=== PATIENT | male | born 1945 | race American Indian/Alaskan Native ===

== ENCOUNTER 2017-09-19 10:39 | Observation (INO) | payer MEDICARE ==
[2017-09-17 14:49] LABS: Eosinophils # (Auto) 0.1 K/mm3 (0.0-0.4); Eosinophils % (Auto) 3.1 % (0.0-4.3); Hematocrit 43.2 % (35.5-45.6); Hemoglobin 14.3 gm/dl (11.8-15.2); Lymphocytes # (Auto) 1.5 K/mm3 (1.2-5.4); Lymphocytes % (Auto) 32.5 % (13.4-35.0); Mean Corpuscular HGB Conc 33 % (32-34); Mean Corpuscular Hemoglobin 29 pg (28-32); Mean Corpuscular Volume 89 fl (84-94); Monocytes # (Auto) 0.3 K/mm3 (0.0-0.8); Monocytes % (Auto) 7.1 % (0.0-7.3); Platelet Count 160 K/mm3 (140-440); Red Blood Count 4.87 M/mm3 (3.65-5.03); Red Cell Distribution Width 13.2 % (13.2-15.2)
[2017-09-17 15:01] LABS: INR 0.92 (0.87-1.13)
[2017-09-17 15:02] LABS: Partial Thromboplastin Time 30.1 Sec. (24.2-36.6)
[2017-09-17 15:04] LABS: Alanine Aminotransferase 15 units/L (7-56); Albumin 4.2 g/dL (3.9-5); BUN/Creatinine Ratio 15; Blood Urea Nitrogen 17 mg/dL (9-20); Hemolysis Index 46
[~2017-09-19 10:39] MED LIST: DILAUDID IV PRN; GARAMYCIN/NS 80 MG/100 ML 100 ML IV SCH; VANCOMYCIN PHARMACY TO DOSE IV SCH; VANCOMYCIN/NS 1 GM/250 ML 1 GM/250 ML BAG IV SCH; ZOFRAN IV PRN
[2017-09-19] MEDS ORDERED: LACTATED RINGERS 1,000 ML IV SCH (11:00)
[2017-09-19] MEDS ORDERED: VERSED IV NR (11:00)
[2017-09-19] MEDS ORDERED: NACL BACTERIOSTATIC INFILTRATI ONE (11:55)
[2017-09-19] MEDS ORDERED: NEO SYNEPHRINE/NS Syringe(OR USE) IV ONE (12:00)
[2017-09-19] MEDS: LACTATED RINGERS 1,000 ML IV SCH (12:10)
[2017-09-19] MEDS ORDERED: NACL ONE ×2 (12:49→12:50)
[2017-09-19] MEDS ORDERED: MARCAINE 0.5% 30 ML INFILTRATI ONE (12:49)
[2017-09-19] MEDS ORDERED: XYLOCAINE MPF 2% ONE (12:55)
[2017-09-19] MEDS ORDERED: DILAUDID ONE (12:55)
[2017-09-19] MEDS ORDERED: DIPRIVAN 10 MG/ML IV ONE (12:55)
[2017-09-19] MEDS ORDERED: VANCOMYCIN/0.45 NS 1 GM/250 ML 1 GM/250 ML BAG IV SCH (13:00)
[2017-09-19] MEDS ORDERED: NEOSPORIN GU IR ONE (14:04)
[2017-09-19] MEDS ORDERED: MARCAINE 0.5% INFILTRATI ONE (14:05)
[2017-09-19] MEDS ORDERED: NACL 0.9% IR ONE (14:05)
[2017-09-19] MEDS ORDERED: NACL INFILTRATI ONE (14:06)
[2017-09-19] MEDS ORDERED: NARCAN 0.4 MG/1 ML IV PRN (14:28)
[2017-09-19] MEDS ORDERED: NORCO 5/325 PO PRN (14:28)
--- NOTE | 2017-09-19 14:28 | Short Stay Summary ---
Short Stay Documentation Date of service: 09/12/17 - History H&P: obtained from office - Allergies and Medications Current Medications: Allergies Penicillins Allergy (Verified 09/13/17 12:45) Hives Home Medications Medication Instructions Recorded Confirmed Last Taken Type Finasteride [Proscar] 5 mg PO DAILY 09/13/17 09/13/17 09/18/17 History Folic Acid 0.4 mg PO QDAY 09/13/17 09/19/17 09/18/17 History Lisinopril/Hydrochlorothiazide 1 each PO DAILY 09/13/17 09/19/17 09/19/17 06:00 History [Zestoretic 10-12.5 mg Tablet] Terazosin HCl 2 mg PO DAILY 09/13/17 09/13/17 09/18/17 History Active Medications Gentamicin Sulfate/Sodium Chloride (Garamycin/Ns 80 Mg/100 Ml) 100 mls @ 200 mls/hr IV PREOP GLENDY Stop: 09/19/17 23:59 Lactated Ringer's (Lactated Ringers) 1,000 mls @ 100 mls/hr IV DIRECT GLENDY Last Admin: 09/19/17 12:10 Dose: 100 mls/hr Vancomycin HCl (Vancomycin/0.45 Ns 1 Gm/250 Ml) 1 gm in 250 mls @ 167.007 mls/ hr IV PREOP GLEDNY Midazolam HCl (Versed) 2 mg IV PREOP NR Stop: 09/19/17 23:59 Last Admin: 09/19/17 12:13 Dose: 2 mg - Brief post op/procedure progress note Date of procedure: 09/19/17 Pre-op diagnosis: ED Post-op diagnosis: same Procedure: ipp 21 + 3cm RTE Anesthesia: GIOVANNI Surgeon: SU VAN Child And Family Therapist: ALIS NGUYEN Estimated blood loss: minimal Pathology: none Condition: stable - Hospital course Hospital course: post op info on chart (pt has abx/pain meds) do not discuss with family/friends removed paredes& wrap looks good - Disposition Condition at discharge: Stable Short Stay Discharge Plan Follow up with: AKIRA SPICER MD, PHD [Primary Care Provider] - 7 Days
--- NOTE | 2017-09-19 14:46 | History and Physical Report ---
History of Present Illness Date of admission: 09/19/17 14:28 Chief complaint: High blood pressure History of present illness: 71 YO Male with HTN, BPH, consult placed for hypertension. Pt seen and evaluated post-op. Pt seen and evaluated upon arrival to the surgical floor. Pt denies fever, chills, CP, Palpitations, NVD, syncope, productive cough, headache , leg swelling. No reported nursing events. Pt states that he is experiencing pain at 5/10 and is waiting for his pain medication. Patient blood pressure currently controlled. Past History Past Medical History: hypertension, other (BPH) Past Surgical History: Other (urologic surgery) Social history: , lives with family. denies: smoking, alcohol abuse, prescription drug abuse Family history: hypertension Medications and Allergies Allergies Allergy/AdvReac Type Severity Reaction Status Date / Time Penicillins Allergy Hives Verified 09/13/17 12:45 Home Medications Medication Instructions Recorded Confirmed Last Taken Type Finasteride [Proscar] 5 mg PO DAILY 09/13/17 09/13/17 09/18/17 History Folic Acid 0.4 mg PO QDAY 09/13/17 09/19/17 09/18/17 History Lisinopril/Hydrochlorothiazide 1 each PO DAILY 09/13/17 09/19/17 09/19/17 06:00 History [Zestoretic 10-12.5 mg Tablet] Terazosin HCl 2 mg PO DAILY 09/13/17 09/13/17 09/18/17 History Active Meds: Active Medications Acetaminophen/Hydrocodone Bitart ([place] 5/325) 2 each PO Q6H PRN PRN Reason: Pain, Moderate (4-6) Finasteride (Proscar) 5 mg PO DAILY GLENDY Gentamicin Sulfate/Sodium Chloride (Garamycin/Ns 80 Mg/100 Ml) 100 mls @ 200 mls/hr IV PREOP GLENDY Stop: 09/19/17 23:59 Lactated Ringer's (Lactated Ringers) 1,000 mls @ 100 mls/hr IV DIRECT GLENDY Last Admin: 09/19/17 12:10 Dose: 100 mls/hr Vancomycin HCl (Vancomycin/0.45 Ns 1 Gm/250 Ml) 1 gm in 250 mls @ 167.007 mls/ hr IV PREOP GLENDY Sodium Chloride (Nacl 0.45% 1000 Ml) 1,000 mls @ 100 mls/hr IV DIRECT [facility] Vancomycin HCl (Vancomycin/Ns 1 Gm/250 Ml) 1 gm in 250 mls @ 167.007 mls/hr IV Q12H [facility] Stop: 09/19/17 16:30 Midazolam HCl (Versed) 2 mg IV PREOP NR Stop: 09/19/17 23:59 Last Admin: 09/19/17 12:13 Dose: 2 mg Miscellaneous Medication (Lisinopril/Hydrochlorothiazide [Zestoretic 10-12.5 Mg Tablet]) 1 each PO DAILY [facility] Morphine Sulfate (Morphine) 2 mg IV Q4H PRN PRN Reason: Pain, Moderate (4-6) Naloxone HCl (Narcan 0.4 Mg/1 Ml) 0.1 mg IV Q2MIN PRN PRN Reason: Res Rate </= 8 or 02 SAT < 92% Ondansetron HCl (Zofran) 4 mg IV Q8H PRN PRN Reason: N/V unrelieved by Reglan Prazosin HCl (Minipress) 1 mg PO Q12HR [facility] Review of Systems Constitutional: no weight loss, no weight gain, no fever, no chills Ears, nose, mouth and throat: no ear pain, no ear discharge, no tinnitis, no decreased hearing, no nose pain, no nasal congestion, no nasal discharge Cardiovascular: no chest pain, no orthopnea, no palpitations, no rapid/ irregular heart beat, no edema, no syncope, no lightheadedness Respiratory: no cough, no cough with sputum, no excessive sputum, no hemoptysis , no shortness of breath, no dyspnea on exertion Gastrointestinal: no abdominal pain, no nausea, no vomiting, no diarrhea Genitourinary Male: no dysuria, no hematuria, no flank pain, no discharge Rectal: no pain, no incontinence, no bleeding Musculoskeletal: no neck stiffness, no neck pain, no shooting arm pain, no arm numbness/tingling, no low back pain, no shooting leg pain, no leg numbness/ tingling Integumentary: no rash, no pruritis, no redness, no sores, no wounds, no jaundice, no boils Neurological: no head injury, no transient paralysis, no paralysis, no weakness , no parathesias, no numbness, no tingling, no seizures Psychiatric: no anxiety, no memory loss, no change in sleep habits, no sleep disturbances, no insomnia, no hypersomnia, no change in appetite Endocrine: no cold intolerance, no heat intolerance, no polyphagia, no excessive thirst, no polydipsia, no polyuria Hematologic/Lymphatic: no easy bruising, no easy bleeding, no lymphadenopathy, no lymphedema Allergic/Immunologic: no urticaria, no allergic rhinitis, no wheezing, no persistent infections, no anaphylaxis, no angioedema Exam - Constitutional Vitals: Temp Pulse Resp BP Pulse Ox 98.9 F 88 16 137/73 95 09/19/17 11:54 09/19/17 11:54 09/19/17 11:54 09/19/17 11:54 09/19/17 11:54 General appearance: Present: no acute distress - EENT Eyes: Present: PERRL ENT: hearing intact, clear oral mucosa - Neck Neck: Present: supple, normal ROM - Respiratory Respiratory effort: normal Respiratory: bilateral: CTA - Cardiovascular Heart Sounds: Present: S1 & S2. Absent: rub, click - Extremities Extremities: pulses symmetrical, No edema Peripheral Pulses: within normal limits - Abdominal General gastrointestinal: Present: soft, non-tender, non-distended, normal bowel sounds Male genitourinary: Present: normal - Integumentary Integumentary: Present: clear, warm, dry - Musculoskeletal Musculoskeletal: gait normal, strength equal bilaterally - Psychiatric Psychiatric: appropriate mood/affect, intact judgment & insight - Neurologic Neurologic: CNII-XII intact, moves all extremities Results - Labs CBC & Chem 7: 09/17/17 14:20 09/17/17 14:20 Assessment and Plan - Patient Problems (1) HTN (hypertension) Current Visit: Yes Status: Acute Qualifiers: Hypertension type: essential hypertension Qualified Code(s): I10 - Essential (primary) hypertension Plan to address problem: Monitor BP q shift, recheck BP after adequate pain control achieved, IV hydralazine prn (2) BPH (benign prostatic hyperplasia) Current Visit: Yes Status: Chronic Plan to address problem: per primary team.
[2017-09-19] MEDS ORDERED: NACL 0.45% 1000 ML 1,000 ML IV SCH (15:00)
[2017-09-19] MEDS ORDERED: VANCOMYCIN/NS 1 GM/250 ML 1 GM/250 ML BAG IV SCH ×2 (15:00→17:00)
--- NOTE | 2017-09-19 15:11 | Operative Report ---
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 PROCEDURE: 1. Insertion of inflatable penile prosthesis ([employer] AMS 700 CX with 21 cm with 3 cm rear tip extenders. 2. Injection of penile pharmacologic agent. SURGEON: Migue Munguia MD ANESTHESIA: General. SHIFT SUPERVISOR: Kehinde Hammer. ESTIMATED BLOOD LOSS: Minimal. FLUIDS: Crystalloid. COMPLICATIONS: No complications. INDICATIONS: This 71-year-old gentleman seen in the office for erectile dysfunction despite conservative options. Risks, benefits, and complications were explained. The patient agreed to proceed with surgical intervention. He has a history of hypertension proceed. DESCRIPTION OF PROCEDURE: The patient was taken to the operative suite, placed in a supine position, prepped and draped in a sterile fashion. Zuleta catheter was placed on the operative field. Injection of pharmacologic agent (0.25% Marcaine) in the penis no curvature could be appreciated. Penoscrotal incision was made. Sharp dissection was taken down to the corporal bodies 2-0 Vicryl stay stitches were made. Corporotomies were performed bilaterally. Gentle dilation of the penis was performed with 78 sound. Measurements revealed a total of 24 cm, therefore a 21 cm CX device was prepped with 100 mL Conceal reservoir. 100 mL reservoir was prepped, placed in the retropubic space via the right external ring, inflated to 100 mL. No back pressure. The 21 cm implant was placed in the bladder with the aid of Donny needle. It was inflated. Good positioning deflated, closed with 2-0 Vicryl in a running fashion. Corporotomies were closed with 2-0 Vicryl in a running fashion. It was inflated again, could accommodate a total of 55 mL. Throughout the procedure copious irrigation was performed. Adequate hemostasis achieved. The reservoir was placed in the dependent aspect of the scrotum. Pursestring suture using 2-0 Vicryl in a running fashion was used to close. A transverse incision was closed on the skin using 2-0 Vicryl in interrupted fashion. Collodion was placed as well as a mummy wrap. The patient tolerated the procedure well and was extubated and taken to recovery room. He will be observed overnight and go home on [facility] [place]. JOB# [id number] [facility]
[2017-09-19] MEDS: MORPHINE IV PRN (16:44)
[2017-09-19] MEDS ORDERED: VANCOMYCIN PHARMACY TO DOSE IV SCH (17:00)
[2017-09-19] MEDS ORDERED: APRESOLINE IV PRN (19:38)
[2017-09-19] MEDS: ZOFRAN IV PRN (21:09)
[2017-09-19] MEDS ORDERED: MINIPRESS PO SCH (22:00)
[2017-09-20] MEDS ORDERED: VANCOMYCIN/0.45 NS 1 GM/250 ML 1 GM/250 ML BAG IV SCH (01:00)
[2017-09-20] MEDS ORDERED: VANCOMYCIN/NS 1 GM/250 ML 1 GM/250 ML BAG IV SCH (01:00)
[2017-09-20] MEDS: LACTATED RINGERS 1,000 ML IV SCH (02:37)
[2017-09-20] MEDS: MORPHINE IV PRN (06:26)
[2017-09-20] MEDS: ZOFRAN IV PRN (06:31)
[2017-09-20] MEDS ORDERED: PROSCAR PO SCH (10:00)
[2017-09-20] MEDS ORDERED: HCTZ PO SCH (10:00)
[2017-09-20] MEDS ORDERED: TERAZOSIN HCL 2 MG PO SCH (10:00)
[2017-09-20] MEDS ORDERED: ZESTRIL PO SCH (10:00)
[2017-09-20] MEDS ORDERED: NON-FORMULARY (Lisinopril/Hydrochlorothiazide [Zestoretic 10-12.5 Mg Tablet] 1 EACH) PO SCH (10:00)
--- NOTE | 2017-09-20 10:45 | Discharge Summary ---
Providers - Providers Date of Admission: 09/19/17 14:28 Date of discharge: 09/20/17 Attending physician: SU VAN Primary care physician: AKIRA SPICER Hospitalization Condition: Stable Hospital course: Dx ED s/p prosthesis Hypertension BPH Disposition: DC-01 TO HOME OR SELFCARE Time spent for discharge: 35 minutes Core Measure Documentation - Palliative Care Palliative Care/ Comfort Measures: Not Applicable - Core Measures Any of the following diagnoses?: none - VTE Discharge Requirements Deep Vein Thrombosis/Pulmonary Embolism Present on Admission: No Has pt received <5 days of overlap therapy or INR<2.0: No Anticoagulant overlap therapy prescribed at discharge: No Contraindication No Overlap Therapy order at DC: Not Indicated Exam - Physical Exam Narrative exam: GEN: WDWN, NAD, Awake, Alert, Orientated x 3 HEENT: NCAT, EOMI, PERRL, OP Clear NECK: supple, no adenopathy, no thyromegaly, no JVD CVS/HEART: RRR, normal S1S2, pulses present bilaterally CHEST/LUNGS: CTA B, Symmetrical chest expansion, good air entry bilaterally GI/Abdomen: soft, NTND, good bowel sounds, no guarding or rebound /Bladder: defered to urology, dr. van EXT/Skin: no c/c/e, no obvious rash MSK: FROM x 4 Neuro: CN 2-12 grossly intact, no new focal deficits Psych: calm - Constitutional Vitals: Temp Pulse Resp BP Pulse Ox 98.6 F 71 18 119/69 99 09/20/17 08:00 09/20/17 08:11 09/20/17 08:00 09/20/17 08:00 09/20/17 08:11 Plan Activity: other (no strenous activity until cleared by urology and pcp) Diet: low salt Follow up with: AKIRA SPICER MD, PHD [Primary Care Provider] - 7 Days SU VAN MD [Staff Physician] - 7 Days
[2017-09-20 16:44] VITALS: BP 145/74
== END 2017-09-20 17:45 | disposition home or self-care (01) ==
LOC: OR 10:39 → 3B-SURG 14:28
PROVIDERS: ADMIT Urology; ATTEND Urology
DX: N52.01 Erectile dysfunction due to arterial insufficiency (principal); I10 Essential (primary) hypertension; N40.0 Benign prostatic hyperplasia without lower urinary tract symptoms
CPT/HCPCS: 36415; 54405; 80053; 85025; 85610; 85730; 96365; 96375; 96376; C1813; G0378; J1170; J1580; J2250; J2270; J2370; J2405; J2704; J3370; J7120